=== PATIENT | male | born 1995 | race Caucasian/White ===

== ENCOUNTER 2019-09-19 22:24 | Emergency (ER) | payer BC, SELFPAY ==
[2019-09-19] MEDS ORDERED: FAMOTIDINE 20 MG/2 ML VIAL IV ONE (23:02)
[2019-09-19] MEDS ORDERED: METHYLPREDNISOLONE 125 MG INJ ONE (23:02)
[2019-09-19] MEDS ORDERED: DIPHENHYDRAMINE 50 MG/ML VIAL ONE (23:02)
--- NOTE | 2019-09-19 23:48 | ER ---
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 Site is red and ll1 swollen. Slight SOB reported. No rash/hives. States he has had a anaphylactic reaction before to wasp stings. Coronavirus screen: Client denies travel out of the [place] in the last 14 days. At this time, the client does not indicate any symptoms associated with coronavirus-19. Ebola Screen: Patient denies travel to an Ebola-affected area in the 21 days before illness onset. Initial Sepsis Screen: Does the patient meet any 2 criteria? No. Patient's initial sepsis screen is negative. Risk Assessment: Do you want to hurt yourself or someone else? Patient reports no desire to harm self or others. Onset of symptoms was September 19, 2019. 22:38 Method Of Arrival: Ambulatory ll1 22:38 Acuity: WESLEY 3 ll1 23:02 Initial Sepsis Screen: Does the patient have a suspected source of infection? No. wh Patient's initial sepsis screen is negative. Historical: - Allergies: 22:40 opiates; ll1 - PMHx: 22:40 high HR; ll1 - PSHx: 22:40 shoulder reconstruction; pyloric stenosis surgery; ll1 - Immunization history:: Flu vaccine is up to date. - Social history:: Smoking status: Patient reports the use of cigarette tobacco products, smokes one-half pack cigarettes per day, Patient uses alcohol, only on a social basis. Screenin:01 Abuse screen: Denies threats or abuse. Denies injuries from another. Nutritional wh screening: No deficits noted. Tuberculosis screening: No symptoms or risk factors identified. Fall Risk None identified. Assessment: 23:00 General: Appears in no apparent distress. Behavior is calm, cooperative, appropriate wh for age. Pain: Denies pain. Neuro: Level of Consciousness is awake, alert, obeys commands, Oriented to person, place, time, situation, Appropriate for age. Cardiovascular: Capillary refill < 3 seconds. Respiratory: Airway is patent Respiratory effort is even, unlabored, Respiratory pattern is regular, symmetrical. GI: Abdomen is flat, non-distended. : No signs and/or symptoms were reported regarding the genitourinary system. EENT: No signs and/or symptoms were reported regarding the EENT system. Derm: swelling on right hand. Musculoskeletal: Circulation, motion, and sensation intact. Swelling present in right hand. 09/19 00:13 Reassessment: Patient appears in no apparent distress at this time. No changes from previously documented assessment. Patient and/or family updated on plan of care and expected duration. Pain level reassessed. Patient is alert, oriented x 3, equal unlabored respirations, skin warm/dry/pink. Patient states feeling better. Patient states symptoms have improved. Vital Signs: 09/18 22:38 BP 135 / 85; Pulse 68; Resp 17; Temp 99.0; Pulse Ox 98% on R/A; Pain 2/10; ll1 09/19 00:13 BP 121 / 73; Pulse 73; Resp 18; Pulse Ox 98% on R/A; ED Course: 09/18 22:25 Patient arrived in ED. cl3 22:38 Aba Carlos MD is Attending Physician. tw4 22:39 Triage completed. ll1 22:40 Arm band placed on Patient placed in an exam room, on a stretcher. ll1 22:49 Dawson Crawley is Primary Nurse. wh 22:50 Inserted saline lock: 20 gauge in right antecubital area, using aseptic technique. Blood collected. 23:01 Patient has correct armband on for positive identification. Bed in low position. Call light in reach. Side rails up X 1. Pulse ox on. NIBP on. 09/19 00:14 No provider procedures requiring assistance completed. Patient did not have IV access during this emergency room visit. Administered Medications: 09/18 22:55 Drug: Pepcid 20 mg Route: IVP; Site: right antecubital; 09/19 00:14 Follow up: Response: No adverse reaction; Marked relief of symptoms 00:14 Follow up: Response: No adverse reaction; Marked relief of symptoms 09/18 22:57 Drug: Benadryl 25 mg Route: IVP; Site: right antecubital; 09/19 00:14 Follow up: Response: No adverse reaction; Marked relief of symptoms 09/18 22:59 Drug: SOLU-Medrol 125 mg Route: IVP; Site: right antecubital; 09/19 00:14 Follow up: Response: No adverse reaction; Marked relief of symptoms Outcome: 09/18 23:48 Discharge ordered by . sigrid 09/19 00:15 Discharged to home ambulatory. Condition: stable Discharge instructions given to patient, Instructed on discharge instructions, follow up and referral plans. medication usage, POC Demonstrated understanding of instructions, follow-up care, medications, POC Prescriptions given X 2. 00:15 Patient left the ED. Signatures: Dawson Crawley Aba Carlos MD MD tw4 Javier Lawrence3 Dakota Lawrence RN RN ll1 Corrections: (The following items were deleted from the chart) 09/18 22:41 22:38 Acuity: WESLEY 4 ll1 ll1
--- NOTE | 2019-09-19 23:49 | EDPHYS ---
Physician Documentation [facility] Name: Vikas Sanchez Age: 24 yrs Sex: Male : 1995 Arrival Date: 09/19/2019 Time: 22:25 Bed 18 Private MD: ED Physician Aba Carlos HPI: 09/19 01:51 This 24 yrs old Male presents to ER via Ambulatory with complaints of Wasp tw4 Sting. 01:51 The patient presents with redness of skin. Onset: The symptoms/episode began/occurred tw4 just prior to arrival, today. Associated signs and symptoms: The patient has no apparent associated signs or symptoms. Possible causes: The patient has no known obvious cause for the symptoms. At home the patient or guardian has treated the symptoms with nothing. The patient has not experienced similar symptoms in the past. Historical: - Allergies: 09/18 22:40 opiates; ll1 - PMHx: 22:40 high HR; ll1 - PSHx: 22:40 shoulder reconstruction; pyloric stenosis surgery; ll1 - Immunization history:: Flu vaccine is up to date. - Social history:: Smoking status: Patient reports the use of cigarette tobacco products, smokes one-half pack cigarettes per day, Patient uses alcohol, only on a social basis. ROS: 09/19 01:51 Constitutional: Negative for fever, chills, and weight loss, Eyes: Negative for injury, tw4 pain, redness, and discharge, Cardiovascular: Negative for chest pain, palpitations, and edema, Respiratory: Negative for shortness of breath, cough, wheezing, and pleuritic chest pain, Abdomen/GI: Negative for abdominal pain, nausea, vomiting, diarrhea, and constipation, Back: Negative for injury and pain. Skin: Positive for swelling. Exam: 01:51 Constitutional: This is a well developed, well nourished patient who is awake, alert, tw4 and in no acute distress. Head/Face: Normocephalic, atraumatic. Chest/axilla: Normal chest wall appearance and motion. Nontender with no deformity. No lesions are appreciated. Cardiovascular: Regular rate and rhythm with a normal S1 and S2. No gallops, murmurs, or rubs. Normal PMI, no JVD. No pulse deficits. Respiratory: Lungs have equal breath sounds bilaterally, clear to auscultation and percussion. No rales, rhonchi or wheezes noted. No increased work of breathing, no retractions or nasal flaring. Abdomen/GI: Soft, non-tender, with normal bowel sounds. No distension or tympany. No guarding or rebound. No evidence of tenderness throughout. Skin: Warm, dry with normal turgor. Normal color with no rashes, no lesions, and no evidence of cellulitis. 01:57 Musculoskeletal/extremity: Extremities: noted in the dorsal aspect of proximal phalanx tw4 of right thumb and Right first web space: ROM: Vital Signs: 09/18 22:38 BP 135 / 85; Pulse 68; Resp 17; Temp 99.0; Pulse Ox 98% on R/A; Pain 2/10; ll1 09/19 00:13 BP 121 / 73; Pulse 73; Resp 18; Pulse Ox 98% on R/A; wh MDM: 09/18 22:39 Patient medically screened. tw4 09/19 01:51 Differential diagnosis: anaphylaxis, urticaria. Data reviewed: vital signs, nurses tw4 notes. Counseling: I had a detailed discussion with the patient and/or guardian regarding: the historical points, exam findings, and any diagnostic results supporting the discharge/admit diagnosis. Medication response: solumderol. Response to treatment: and as a result, I will discharge patient. Special discussion: I discussed with the patient/guardian in detail that at this point there is no indication for admission to the hospital. It is understood, however, that if the symptoms persist or worsen the patient needs to return immediately for re-evaluation. 01:57 Data interpreted: Pulse oximetry: Interpretation:. tw4 Administered Medications: 09/18 22:55 Drug: Pepcid 20 mg Route: IVP; Site: right antecubital; 09/19 00:14 Follow up: Response: No adverse reaction; Marked relief of symptoms 00:14 Follow up: Response: No adverse reaction; Marked relief of symptoms 09/18 22:57 Drug: Benadryl 25 mg Route: IVP; Site: right antecubital; 09/19 00:14 Follow up: Response: No adverse reaction; Marked relief of symptoms 09/18 22:59 Drug: SOLU-Medrol 125 mg Route: IVP; Site: right antecubital; 09/19 00:14 Follow up: Response: No adverse reaction; Marked relief of symptoms wh Disposition: 09/19/19 23:48 Discharged to Home. Impression: Insect bite (nonvenomous) of right hand, Other insect allergy status. - Condition is Stable. - Discharge Instructions: Allergies, Adult, Bee, Wasp, or Hornet Sting, Adult. - Prescriptions for Medrol (Jamaal) 4 mg Oral Tablets, Dose Pack - take 1 tablet by ORAL route as directed - follow package instructions; 1 packet. EpiPen 0.3 mg Injection auto- injector - inject 1 pen by INTRAMUSCULAR route one time Inject into the outer portion of the thigh, through clothing if necessary. Indicated in the emergency treatment of allergic reactions; 1 box. - Medication Reconciliation Form, Thank You Letter, Antibiotic Education, Prescription Opioid Use form. - Follow up: Private Physician; When: Upon discharge from the Emergency Department; Reason: Recheck today's complaints, Continuance of care, Re-evaluation by your physician. - Problem is new. - Symptoms have improved. Signatures: Dawson Crawley Aba Carlos MD MD tw4 Dakota Lawrence RN RN ll1 Corrections: (The following items were deleted from the chart) 00:15 09/18 23:48 09/19/2019 23:48 Discharged to Home. Impression: Insect bite (nonvenomous) wh of right hand; Other insect allergy status. Condition is Stable. Forms are Medication Reconciliation Form, Thank You Letter, Antibiotic Education, Prescription Opioid Use. Follow up: Private Physician; When: Upon discharge from the Emergency Department; Reason: Recheck today's complaints, Continuance of care, Re-evaluation by your physician. Problem is new. Symptoms have improved. tw4
[2019-09-20 00:29] VITALS: TEMP 99; O2SAT 98
[2019-09-20 00:30] VITALS: BP 121/73
== END 2019-09-20 00:15 | disposition home or self-care (01) ==
LOC: ER 22:24
DX: S60.361A Insect bite (nonvenomous) of right thumb, initial encounter (principal); Z91.038 Other insect allergy status
CPT/HCPCS: 96374; 96375; 99284; J1200; J2930

== ENCOUNTER 2022-12-31 21:00 | Emergency (ER) | payer SELFPAY ==
[2022-12-31 22:11] LABS: Absolute Lymphocytes (CBC) 1.5 K/uL (0.7-4.9); Hematocrit 42.1 % (39.6-49.0); Lymphocytes % 8.1 % (15.3-44.8); MCV 92.5 fL (80-100); MPV 7.3 fL (7.6-11.3); Platelets 324 thou/uL (152-406); RBC Red Blood Cell Count 4.55 M/uL (4.33-5.43)
[2022-12-31 22:26] LABS: ALT/SGPT 31 U/L (16-61); AST/SGOT 16 U/L (15-37); Albumin 3.7 g/dL (3.4-5.0); Alkaline Phosphatase 58 U/L (45-117); BUN Blood Urea Nitrogen 17 mg/dL (7-18); Bicarbonate 29 mEq/L (21-32); Bilirubin Total 0.3 mg/dL (0.2-1.0); Glomerular Filtration Rate 115 ml/min (=/>90); Glucose Level 105 mg/dL (74-106); Potassium 3.7 mEq/L (3.5-5.1); Protein, Total 7.1 g/dL (6.4-8.2); Sodium Level 137 mEq/L (136-145)
[2022-12-31 22:29] LABS: Bilirubin Direct < 0.1 mg/dL (0-0.2); Bilirubin Indirect, Calculated ND mg/dL (0.2-0.8)
[2022-12-31 23:01] LABS: Blood Morphology Comment NOT SEEN (NOT SEEN); Platelet Estimate ADEQ
[2022-12-31 23:12] LABS: Protime INR 1.06
[2023-01-01 00:20] LABS: Barbiturates NEGATIVE (NEGATIVE); Benzodiazepines NEGATIVE (NEGATIVE); Cocaine NEGATIVE (NEGATIVE); METHAMPHETAM POSITIVE (NEGATIVE); Methadone NEGATIVE (NEGATIVE); Opiates NEGATIVE (NEGATIVE); Phencyclidine NEGATIVE (NEGATIVE); THC Cannibis NEGATIVE (NEGATIVE)
[2023-01-01 00:35] LABS: Specific Gravity > 1.030 (1.005-1.030); Urine Bacteria None Seen /HPF (<20); Urine Bilirubin NEGATIVE (Negative); Urine Blood Negative (Negative); Urine Clarity Clear (Clear); Urine Color Yellow (Yellow); Urine Glucose NEGATIVE (Negative); Urine Mucus 2+ /HPF (None Seen); Urine Protein TRACE (Negative); Urine RBC <5 /HPF (None Seen); Urine Urobilinogen Normal (Normal)
--- NOTE | 2023-01-01 03:21 | EDPHYS ---
Physician Documentation [facility] Name: Vikas Sanchez Age: 27 yrs Sex: Male : 1995 Arrival Date: 12/31/2022 Time: 21:00 Bed 2 Private MD: ED Physician Zenon Das HPI: 12/31 21:17 27-year-old male with a history of ADHD not currently on medications presents to the ED sp3 after taking single pill that his cousin's brother gave him after he was told it was "Adderall". Patient was hoping to get a boost while at work but instead became drowsy and somnolent and passed out to the point where his significant other gave Narcan intranasally and EMS was activated who gave Narcan 1 mg IV after which she cannot he was fully alert and oriented and awake. No prior history of similar symptoms and patient has not had any other substances on board. Review of systems negative for headache, fever, URI symptoms, shortness of breath, chest pain, neck pain, focal neurological symptoms, abdominal pain, vomiting, diarrhea, or any other signs or symptoms on ROS at this time.. Historical: - Allergies: 21:06 OPIATES; jb4 - Home Meds: 21:06 None [Active]; jb4 - PMHx: 21:06 high HR; ADHD (high HR); jb4 - PSHx: 21:06 None; jb4 - Social history:: Smoking status: Patient reports the use of cigarette tobacco products, smokes one-half pack cigarettes per day, Patient uses alcohol, occasionally. ROS: 21:18 Constitutional: Negative for fever, chills, and weight loss, Eyes: Negative for injury, sp3 pain, redness, and discharge, Neck: Negative for injury, pain, and swelling, Cardiovascular: Negative for chest pain, palpitations, and edema, Abdomen/GI: Negative for abdominal pain, nausea, vomiting, diarrhea, and constipation, Back: Negative for injury and pain, MS/Extremity: Negative for injury and deformity, Skin: Negative for injury, rash, and discoloration, Allergy/Immunology: Negative for hives, rash, and allergies, Endocrine: Negative for neck swelling, polydipsia, polyuria, polyphagia, and marked weight changes, Hematologic/Lymphatic: Negative for swollen nodes, abnormal bleeding, and unusual bruising, 21:18 All other systems are negative, Exam: 21:18 Constitutional: This is a well developed, well nourished patient who is awake, alert, sp3 and in no acute distress. Head/Face: Normocephalic, atraumatic. Eyes: Pupils equal round and reactive to light, extra-ocular motions intact. Lids and lashes normal. Conjunctiva and sclera are non-icteric and not injected. Cornea within normal limits. Periorbital areas with no swelling, redness, or edema. ENT: Nares patent. No nasal discharge, no septal abnormalities noted. External auditory canals are clear. Oropharynx with no redness, swelling, or masses, exudates, or evidence of obstruction, uvula midline. Mucous membranes moist. Neck: Trachea midline, no thyromegaly or masses palpated, and no cervical lymphadenopathy. Supple, full range of motion without nuchal rigidity, or vertebral point tenderness. No Meningismus. Chest/axilla: Normal chest wall appearance and motion. Nontender with no deformity. No lesions are appreciated. Cardiovascular: Regular rate and rhythm with a normal S1 and S2. No gallops, murmurs, or rubs. Normal PMI, no JVD. No pulse deficits. Respiratory: Lungs have equal breath sounds bilaterally, clear to auscultation and percussion. No rales, rhonchi or wheezes noted. No increased work of breathing, no retractions or nasal flaring. Abdomen/GI: Soft, non-tender, with normal bowel sounds. No distension or tympany. No guarding or rebound. No evidence of tenderness throughout. Back: No spinal tenderness. No costovertebral tenderness. Full range of motion. Skin: Warm, dry with normal turgor. Normal color with no rashes, no lesions, and no evidence of cellulitis. MS/ Extremity: Pulses equal, no cyanosis. Neurovascular intact. Full, normal range of motion. Neuro: Awake and alert, GCS 15, oriented to person, place, time, and situation. Cranial nerves II-XII grossly intact. Motor strength 5/5 in all extremities. Sensory grossly intact. Cerebellar exam normal. Normal gait. Psych: Awake, alert, with orientation to person, place and time. Behavior, mood, and affect are within normal limits. Vital Signs: 21:03 BP 94 / 72; Pulse 62; Resp 18; Temp 97.6(O); Pulse Ox 100% on R/A; Weight 72.57 kg (R); jb4 Height 6 ft. 2 in. (R); Pain 0/10; 22:24 BP 119 / 74; Pulse 67; Resp 12; Pulse Ox 100% on R/A; jb4 23:27 BP 124 / 73; Pulse 82; Resp 16; Pulse Ox 100% on R/A; jb4 01/01 00:36 BP 119 / 75; Pulse 80; Resp 14; Pulse Ox 100% on R/A; jb4 12/31 21:03 Body Mass Index 20.54 (72.57 kg, 187.96 cm) jb4 12/31 21:03 Pain Scale: Adult jb4 MDM: 12/31 21:09 Patient medically screened. sp3 21:19 Data reviewed: vital signs, nurses notes, EMS record, lab test result(s). ED course: sp3 27-year-old male who took a single pill of unknown substance that was told was Adderall now presents to the ED for probable narcotic accidental overdose. Patient is not suicidal, homicidal or psychotic. Patient is currently awake and oriented and alert and we will simply observe him for the next 2 hours. Standard work-up including laboratory values and urinalysis and urine drug screen are pending. If work-up is negative and patient stays as is without the need for further Narcan, we will safely discharge patient home.. 01/01 00:36 ED course: Opiates are negative and patient is positive for methamphetamine. Urine sp3 demonstrates no infectious etiology. Chest x-ray is also clean. Patient has no chest pain and no heart murmur and I do not believe has endocarditis or any other critical process to explain his elevated WBC count other than substance use. Educated patient on infection and all of these items and he will return if his symptoms are worse. He denies any IV drug use and states he only took the 1 pill. He is awake and alert oriented and in no distress whatsoever.. 12/31 21:10 Order name: Urine Drug Screen; Complete Time: 00:35 sp3 12/31 21:52 Order name: Basic Metabolic Panel; Complete Time: 23:18 EDMS 12/31 21:52 Order name: Liver (Hepatic) Function; Complete Time: 23:18 EDMS 12/31 21:52 Order name: Acetaminophen Level; Complete Time: 23:18 EDMS 12/31 21:52 Order name: Alcohol Serum/Plasma; Complete Time: 23:18 EDMS 12/31 21:52 Order name: Salicylates Level; Complete Time: 23:18 EDMS 12/31 21:52 Order name: CBC with Automated Diff; Complete Time: 23:18 EDMS 12/31 21:52 Order name: Protime (+INR); Complete Time: 23:18 EDMS 12/31 22:18 Order name: Manual Differential; Complete Time: 23:18 EDMS 12/31 23:19 Order name: UAM; Complete Time: 00:36 sp3 12/31 23:19 Order name: CXR XRAY sp3 12/31 21:10 Order name: IV Saline Lock; Complete Time: 21:18 sp3 12/31 21:10 Order name: Labs collected and sent; Complete Time: 21:35 sp3 12/31 21:10 Order name: Monitor; Complete Time: 21:18 sp3 Administered Medications: No medications were administered Disposition Summary: 01/01/23 00:41 Discharge Ordered Notes: Location: Home sp3 Condition: Stable sp3 Diagnosis - Poisoning by other drugs, medicaments and biological substances, accidental sp3 (unintentional) Followup: sp3 - With: Private Physician - When: Upon discharge from the Emergency Department - Reason: Continuance of care Discharge Instructions: - Discharge Summary Sheet sp3 - Accidental Drug Poisoning, Adult sp3 Forms: - Medication Reconciliation Form sp3 - Thank You Letter sp3 - Antibiotic Education sp3 - Prescription Opioid Use sp3 - Patient Portal Instructions sp3 - Leadership Thank You Letter sp3 Signatures: Dispatcher [employer] Cleveland Henriquez, RN RN jb4 Zenon Das MD MD sp3 Corrections: (The following items were deleted from the chart) 12/31 23:08 23:01 ACETAMINOPHEN+C.LAB.BRZ ordered. EDMS EDMS 23:08 23:01 BASIC METABOLIC PANEL+C.LAB.BRZ ordered. EDMS EDMS 23:08 23:01 CBC+H.LAB.BRZ ordered. EDMS EDMS 23:08 23:01 ETHANOL+C.LAB.BRZ ordered. EDMS EDMS 23:08 23:01 HEPATIC FUNCTION+C.LAB.BRZ ordered. EDMS EDMS 23:01 PROTIME (+INR)+COAG.LAB.BRZ ordered. EDMS EDMS 23:01 SALICYLATE+C.LAB.BRZ ordered. EDMS EDMS
--- NOTE | 2023-01-01 03:21 | ER ---
Nurse's Notes [facility] Name: Vikas Sanchez Age: 27 yrs Sex: Male : 1995 Arrival Date: 12/31/2022 Time: 21:00 Bed 2 Private MD: Diagnosis: Poisoning by other drugs, medicaments and biological substances, accidental (unintentional) Presentation: 12/31 21:03 Chief complaint: EMS states: Pt thought he was taking Adderall but took fentanyl by jb4 mistake. Was given nasal narcan [employer] of ems and 1mg IV narcan by EMS. Is now A\T\Ox4. Coronavirus screen: At this time, the client does not indicate any symptoms associated with coronavirus-19. Ebola Screen: No symptoms or risks identified at this time. Initial Sepsis Screen: Does the patient meet any 2 criteria? No. Patient's initial sepsis screen is negative. Does the patient have a suspected source of infection? No. Patient's initial sepsis screen is negative. Risk Assessment: Do you want to hurt yourself or someone else? Patient reports no desire to harm self or others. Onset of symptoms was December 31, 2022. Transition of care: patient was not received from another setting of care. 21:03 Method Of Arrival: EMS: [facility] jb4 21:03 Acuity: WESLEY 3 jb4 Triage Assessment: 21:06 General: Appears in no apparent distress. comfortable, Behavior is calm, cooperative, jb4 appropriate for age. Pain: Denies pain. EENT: No signs and/or symptoms were reported regarding the EENT system. Neuro: Level of Consciousness is awake, alert, obeys commands, Oriented to person, place, time, situation. Cardiovascular: Patient's skin is warm and dry. Respiratory: Airway is patent Respiratory effort is even, unlabored, Respiratory pattern is regular, symmetrical. GI: No signs and/or symptoms were reported involving the gastrointestinal system. : No signs and/or symptoms were reported regarding the genitourinary system. Derm: Skin is intact, Skin is pink, warm \T\ dry. Musculoskeletal: Circulation, motion, and sensation intact. Range of motion: intact in all extremities. Historical: - Allergies: 21:06 OPIATES; jb4 - Home Meds: 21:06 None [Active]; jb4 - PMHx: 21:06 high HR; ADHD (high HR); jb4 - PSHx: 21:06 None; jb4 - Social history:: Smoking status: Patient reports the use of cigarette tobacco products, smokes one-half pack cigarettes per day, Patient uses alcohol, occasionally. Screenin:08 [facility] ED Fall Risk Assessment (Adult) History of falling in the last 3 months, jb4 including since admission No falls in past 3 months (0 pts) Confusion or Disorientation No (0 pts). Abuse screen: Denies threats or abuse. Nutritional screening: No deficits noted. Tuberculosis screening: No symptoms or risk factors identified. Assessment: 21:08 General: see triage note. jb4 22:24 Reassessment: Patient appears in no apparent distress at this time. Patient and/or jb4 family updated on plan of care and expected duration. Pain level reassessed. Patient is alert, oriented x 3, equal unlabored respirations, skin warm/dry/pink. 23:27 Reassessment: Patient appears in no apparent distress at this time. Patient and/or jb4 family updated on plan of care and expected duration. Pain level reassessed. Patient is alert, oriented x 3, equal unlabored respirations, skin warm/dry/pink. 01/01 00:36 Reassessment: Patient appears in no apparent distress at this time. Patient and/or jb4 family updated on plan of care and expected duration. Pain level reassessed. Patient is alert, oriented x 3, equal unlabored respirations, skin warm/dry/pink. Vital Signs: 12/31 21:03 BP 94 / 72; Pulse 62; Resp 18; Temp 97.6(O); Pulse Ox 100% on R/A; Weight 72.57 kg (R); jb4 Height 6 ft. 2 in. (R); Pain 0/10; 22:24 BP 119 / 74; Pulse 67; Resp 12; Pulse Ox 100% on R/A; jb4 23:27 BP 124 / 73; Pulse 82; Resp 16; Pulse Ox 100% on R/A; jb4 01/01 00:36 BP 119 / 75; Pulse 80; Resp 14; Pulse Ox 100% on R/A; jb4 12/31 21:03 Body Mass Index 20.54 (72.57 kg, 187.96 cm) 4 12/31 21:03 Pain Scale: Adult jb4 ED Course: 12/31 21:03 Patient arrived in ED. jb4 21:03 Zenon Das MD is Attending Physician. sp3 21:06 Triage completed. jb4 21:06 Arm band placed on right wrist. jb4 21:08 Patient has correct armband on for positive identification. Bed in low position. Call jb4 light in reach. Side rails up X 1. Client placed on continuous cardiac and pulse oximetry monitoring. NIBP monitoring applied. court monitor on. 22:22 Cleveland Suggs, RN is Primary Nurse. jb4 01/01 00:13 CXR XRAY In Process Unspecified. EDMS 00:57 No provider procedures requiring assistance completed. IV discontinued, intact, jb4 bleeding controlled, No redness/swelling at site. Pressure dressing applied. Administered Medications: No medications were administered Medication: 12/31 21:08 VIS not applicable for this client. jb4 Outcome: 01/01 00:41 Discharge ordered by MD. sp3 00:57 Discharged to home ambulatory, jb4 00:57 Condition: stable 00:57 Discharge instructions given to patient, Instructed on discharge instructions, follow up and referral plans. Demonstrated understanding of instructions, follow-up care, 00:57 Patient left the ED. jb4 Signatures: Dispatcher [employer] EDSC Cleveland Suggs RN RN jb4 Zenon Das MD MD sp3
[2023-01-01 03:34] VITALS: TEMP 97.6; O2SAT 100
[2023-01-01 03:37] VITALS: BP 119/75
--- NOTE | 2023-01-02 11:27 | RAD REPORT ---
EXAM DESCRIPTION: RAD - Chest Single View - 01/01/2023 12:12 am CLINICAL HISTORY: The patient is 27 years old and is Male; leukocytosis TECHNIQUE: Frontal view of the chest. COMPARISON: No relevant prior studies available. FINDINGS: Lungs: Unremarkable. No consolidation. Pleural space: Unremarkable. No pneumothorax. Heart: Unremarkable. Mediastinum: Unremarkable. Bones/joints: No acute findings. IMPRESSION: No acute findings in the chest. 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 The interpreting r adiologist is fully responsible for the content of the report.
== END 2023-01-01 00:57 | disposition home or self-care (01) ==
LOC: ER 21:00
DX: R40.0 Somnolence (principal); T50.991A Poisoning by other drugs, medicaments and biological substances, accidental (unintentional), initial encounter
CPT/HCPCS: 36415; 71045; 80048; 80076; 80143; 80179; 80307; 81001; 82077; 85025; 85610; 99284

== ENCOUNTER 2023-08-25 19:06 | Emergency (ER) | payer SELFPAY ==
[2023-08-25] MEDS ORDERED: NA CHLORIDE 0.9% 1,000 ML ONE (19:35)
[2023-08-25 19:39] LABS: Absolute Basophils 0.1 K/uL (0-0.5); Absolute Eosinophils 0.2 K/uL (0-0.5); Absolute Monocytes 0.7 K/uL (0.1-1.3); Absolute Neutrophil 7.6 K/uL (1.8-8.0); Basophils % 0.5 % (0-1.3); Eosinophils % 1.5 % (0-4.4); Hematocrit 43.6 % (39.6-49.0); Hemoglobin 14.2 g/dL (13.6-17.9); Lymphocytes % 18.9 % (15.3-44.8); MCHC 32.6 g/dL (32.0-36.0); MCV 92.2 fL (80-100); MPV 7.9 fL (7.6-11.3); Monocytes % 6.3 % (3.3-12.3); Neutrophils % 72.8 % (41.7-73.7); Platelets 332 thou/uL (152-406); RBC Red Blood Cell Count 4.72 M/uL (4.33-5.43); Red Cell Distribution Width 14.4 % (12.1-15.2)
[2023-08-25 19:57] LABS: Anion Gap 6.7 mEq/L (5.0-15.0); Magnesium 2.6 mg/dL (1.6-2.4); Potassium 3.7 mEq/L (3.5-5.1); Troponin High Sensitivity 4.2 pg/mL (<58.9)
--- NOTE | 2023-08-25 20:02 | EDPHYS ---
Physician Documentation [facility] Name: Vikas Sanchez Age: 27 yrs Sex: Male : 1995 Arrival Date: 08/25/2023 Time: 19:06 Bed 20 Private MD: ED Physician Chase Hamilton HPI: 08/24 23:52 This 27 yrs old Male presents to ER via EMS with complaints of Heat Exhaustion. rt 23:52 Patient presents to the ED with reported heat exhaustion. Patient was working outside, rt states that he was not drinking enough fluids. Patient states he became weak, had full body cramps. Denies loss of conscious, other acute complaints, symptoms are moderate in severity, no other aggravating elevating factors.. Historical: - Allergies: 19:21 OPIATES; tm6 19:21 wasps; tm6 - PMHx: 19:21 adhd (high HR); high HR; tm6 - PSHx: 19:21 None; tm6 - Immunization history:: Client reports having NOT received the Covid vaccine. - Infectious Disease History:: Denies. - Social history:: Smoking status: Patient reports the use of cigarette tobacco products, smokes one-half pack cigarettes per day. - Family history:: not pertinent. ROS: 23:52 Cardiovascular: Negative for chest pain, palpitations, and edema, Respiratory: Negative rt for shortness of breath, cough, wheezing, and pleuritic chest pain, Abdomen/GI: Negative for abdominal pain, nausea, vomiting, diarrhea, and constipation, MS/Extremity: Negative for injury and deformity, Skin: Negative for injury, rash, and discoloration, Neuro: Negative for headache, weakness, numbness, tingling, and seizure, 23:52 Constitutional: Positive for body aches, Negative for fever, Exam: 23:52 Constitutional: This is a well developed, well nourished patient who is awake, alert, rt and in no acute distress. Head/Face: Normocephalic, atraumatic. Chest/axilla: Normal chest wall appearance and motion. Nontender with no deformity. No lesions are appreciated. Cardiovascular: Regular rate and rhythm with a normal S1 and S2. No gallops, murmurs, or rubs. Normal PMI, no JVD. No pulse deficits. Respiratory: Lungs have equal breath sounds bilaterally, clear to auscultation and percussion. No rales, rhonchi or wheezes noted. No increased work of breathing, no retractions or nasal flaring. Abdomen/GI: Soft, non-tender, with normal bowel sounds. No distension or tympany. No guarding or rebound. No evidence of tenderness throughout. Skin: Warm, dry with normal turgor. Normal color with no rashes, no lesions, and no evidence of cellulitis. MS/ Extremity: Pulses equal, no cyanosis. Neurovascular intact. Full, normal range of motion. Neuro: Awake and alert, GCS 15, oriented to person, place, time, and situation. Cranial nerves II-XII grossly intact. Motor strength 5/5 in all extremities. Sensory grossly intact. Cerebellar exam normal. Normal gait. 23:52 ENT: Dry mucous membranes. 23:52 ECG was reviewed by the Attending Physician. Vital Signs: 19:17 BP 128 / 85; Pulse 113; Resp 12; Temp 98.9(O); Pulse Ox 99% on R/A; MAP 93 mmHg; Weight tm6 81.65 kg; Height 6 ft. 2 in. ; Pain 0/10; 20:18 BP 136 / 84; Pulse 101; Resp 18; Temp 98.9(O); Pulse Ox 99% on R/A; Pain 0/10; tm6 19:17 Body Mass Index 23.11 (81.65 kg, 187.96 cm) tm6 19:17 Pain Scale: Adult tm6 20:18 Pain Scale: Adult tm6 MDM: 19:10 Patient medically screened. rt 23:54 Differential Diagnosis Electrolyte disturbance, dehydration, rhabdomyolysis. Data rt reviewed: vital signs, nurses notes, lab test result(s), EKG. I considered the following discharge prescriptions or medication management in the emergency department Medications were administered in the Emergency Department. See MAR. Counseling: I had a detailed discussion with the patient and/or guardian regarding the historical points, exam findings, and any diagnostic results supporting the discharge/admit diagnosis, lab results, the need for outpatient follow up, to return to the emergency department if symptoms worsen or persist or if there are any questions or concerns that arise at home. Response to treatment: the patient's symptoms have markedly improved after treatment. 08/24 19:15 Order name: Basic Metabolic Panel; Complete Time: 19:58 rt 08/24 19:15 Order name: CBC with Diff; Complete Time: 19:58 rt 08/24 19:15 Order name: Magnesium; Complete Time: :58 rt 08/24 19:15 Order name: Troponin HS; Complete Time: :58 rt 08/24 19:15 Order name: CPK; Complete Time: 19:58 rt 08/24 19:15 Order name: Cardiac monitoring; Complete Time: 19:24 rt 08/24 19:15 Order name: EKG - Nurse/Tech; Complete Time: 19:37 rt 08/24 19:15 Order name: IV Saline Lock; Complete Time: 19:24 rt 08/24 19:15 Order name: Labs collected and sent; Complete Time: 19:37 rt 08/24 19:15 Order name: O2 Per Protocol; Complete Time: 19:24 rt 08/24 19:15 Order name: O2 Sat Monitoring; Complete Time: 19:24 rt EC:52 Rate is 106 beats/min. Rhythm is regular, Sinus tachycardia with No ectopy. QRS [place] is rt Normal. MT interval is normal. QRS interval is normal. QT interval is normal. No Q waves. T waves are Normal. No ST changes noted. Interpreted by me. Administered Medications: 19:38 Drug: NS 0.9% IV 2000 ml IV at 1 bolus Per protocol; 2000 mL bolus {Note: per 1L tm6 bolus, as patient received 1LNS from EMS.} Route: IV; Rate: 1 bolus; Site: left antecubital; 20:19 Follow up: IV Status: Completed infusion; IV Intake: 1000ml tm6 Disposition Summary: 08/25/23 20:02 Discharge Ordered Notes: Location: Home rt Problem: new rt Symptoms: have improved rt Condition: Stable rt Diagnosis - Heat exhaustion, unspecified rt Followup: rt - With: Private Physician - When: 2 - 3 days - Reason: Discharge Instructions: - Discharge Summary Sheet rt - Heat Exhaustion rt Forms: - Medication Reconciliation Form rt - Antibiotic Education rt - Prescription Opioid Use rt - Patient Portal Instructions rt - Leadership Thank You Letter rt Signatures: Dispatcher [employer] Chase Pat MD MD rt Verona Love RN RN tm6
--- NOTE | 2023-08-25 20:02 | ER ---
Nurse's Notes [facility] Name: Vikas Sanchez Age: 27 yrs Sex: Male : 1995 Arrival Date: 08/25/2023 Time: 19:06 Bed 20 Private MD: Diagnosis: Heat exhaustion, unspecified Presentation: 08/24 19:17 Chief complaint: EMS states: patient was outside working and stopped sweating. Family tm6 said he became slightly altered. Has had a heat stroke in the past. Family covered patient in cold water. Upon EMS arrival, patient was A\T\Ox4, with slower speech. Speech is now back to normal. HR has been in 120s, patient states this is normal for him. Coronavirus screen: Vaccine status: Patient reports being unvaccinated. Ebola Screen: Patient negative for fever greater than or equal to 101.5 degrees Fahrenheit, and additional compatible Ebola Virus Disease symptoms Patient denies exposure to infectious person. Patient denies travel to an Ebola-affected area in the 21 days before illness onset. No symptoms or risks identified at this time. Initial Sepsis Screen: Does the patient meet any 2 criteria? HR > 90 bpm. Does the patient have a suspected source of infection? No. Patient's initial sepsis screen is negative. Risk Assessment: Do you want to hurt yourself or someone else? Patient reports no desire to harm self or others. Onset of symptoms was August 25, 2023. 19:17 Method Of Arrival: EMS: [facility] tm6 19:17 Acuity: WESLEY 3 tm6 19:21 Care prior to arrival: Medication(s) given: Normal saline infusion, 1000 mL. tm6 Triage Assessment: 19:21 General: Appears in no apparent distress. Behavior is calm, cooperative. Pain: Denies tm6 pain. EENT: No signs and/or symptoms were reported regarding the EENT system. Neuro: Level of Consciousness is awake, alert, obeys commands, Oriented to person, place, time, situation. Cardiovascular: Patient's skin is warm and dry. Rhythm is sinus tachycardia. Respiratory: Airway is patent Respiratory effort is even, unlabored, Respiratory pattern is regular, symmetrical. GI: No signs and/or symptoms were reported involving the gastrointestinal system. Abdomen is flat, non-distended. : No signs and/or symptoms were reported regarding the genitourinary system. Derm: No signs and/or symptoms reported regarding the dermatologic system. Musculoskeletal: No signs and/or symptoms reported regarding the musculoskeletal system. Historical: - Allergies: 19:21 OPIATES; tm6 19:21 wasps; tm6 - PMHx: 19:21 adhd (high HR); high HR; tm6 - PSHx: 19:21 None; tm6 - Immunization history:: Client reports having NOT received the Covid vaccine. - Infectious Disease History:: Denies. - Social history:: Smoking status: Patient reports the use of cigarette tobacco products, smokes one-half pack cigarettes per day. - Family history:: not pertinent. Screenin:23 [facility] ED Fall Risk Assessment (Adult) History of falling in the last 3 months, tm6 including since admission No falls in past 3 months (0 pts) Confusion or Disorientation No (0 pts) Intoxicated or Sedated No (0 pts) Impaired Gait No (0 pts) Mobility Assist Device Used No (0 pt) Altered Elimination No (0 pt) Score/Fall Risk Level 0 - 2 = Low Risk Oriented to surroundings, Maintained a safe environment, Educated pt \T\ family on fall prevention, incl call for assistance when getting out of bed. Abuse screen: Denies threats or abuse. Denies injuries from another. Nutritional screening: No deficits noted. Tuberculosis screening: No symptoms or risk factors identified. Assessment: 19:23 Reassessment: see triage assessment. tm6 20:18 Reassessment: Patient appears in no apparent distress at this time. Patient and/or tm6 family updated on plan of care and expected duration. Pain level reassessed. Patient is alert, oriented x 3, equal unlabored respirations, skin warm/dry/pink. Vital Signs: 19:17 BP 128 / 85; Pulse 113; Resp 12; Temp 98.9(O); Pulse Ox 99% on R/A; MAP 93 mmHg; Weight tm6 81.65 kg; Height 6 ft. 2 in. ; Pain 0/10; 20:18 BP 136 / 84; Pulse 101; Resp 18; Temp 98.9(O); Pulse Ox 99% on R/A; Pain 0/10; tm6 19:17 Body Mass Index 23.11 (81.65 kg, 187.96 cm) tm6 19:17 Pain Scale: Adult tm6 20:18 Pain Scale: Adult tm6 ED Course: 19:08 Patient arrived in ED. kb3 19:10 Chase Hamilton MD is Attending Physician. rt 19:17 Verona Love, RN is Primary Nurse. tm6 19:21 Triage completed. tm6 19:21 Arm band placed on right wrist. tm6 19:23 Patient has correct armband on for positive identification. Placed in gown. Bed in low tm6 position. Call light in reach. Side rails up X 1. Provided Education on: use of call hunter. Client placed on continuous cardiac and pulse oximetry monitoring. NIBP monitoring applied. front desk monitor on. Pulse ox on. NIBP on. Door closed. Noise minimized. Warm blanket given. 19:23 Maintain EMS IV. Dressing intact. Good blood return noted. Site clean \T\ dry. Gauge \T\ tm 6 site: 18g LAC. 19:37 Basic Metabolic Panel Sent. tm6 19:37 CBC with Diff Sent. tm6 19:37 Magnesium Sent. tm6 19:37 Troponin HS Sent. tm6 19:38 CPK Sent. tm6 19:42 EKG done, by ED staff, reviewed by Chase Hamilton MD. oe 20:18 No provider procedures requiring assistance completed. IV discontinued, intact, tm6 bleeding controlled, No redness/swelling at site. Pressure dressing applied. Administered Medications: 19:38 Drug: NS 0.9% IV 2000 ml IV at 1 bolus Per protocol; 2000 mL bolus {Note: per MD 1L tm6 bolus, as patient received 1LNS from EMS.} Route: IV; Rate: 1 bolus; Site: left antecubital; 20:19 Follow up: IV Status: Completed infusion; IV Intake: 1000ml tm6 Medication: 19:23 VIS not applicable for this client. tm6 Intake: 20:19 IV: 1000ml; Total: 1000ml. tm6 Outcome: 20:02 Discharge ordered by . rt 20:19 Discharged to home ambulatory, tm6 20:19 Condition: stable 20:19 Discharge instructions given to patient, Instructed on discharge instructions, follow up and referral plans. Demonstrated understanding of instructions, follow-up care, 20:19 Patient left the ED. tm6 Signatures: Conrado Medina Kelly RN RN kb3 Chase Hamilton MD MD rt Kate, Tawney, RN RN tm6
[2023-08-25 20:29] VITALS: BP 136/84; TEMP 98.9; O2SAT 99
--- NOTE | 2023-08-28 12:17 | EKG ---
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
== END 2023-08-25 20:19 | disposition home or self-care (01) ==
LOC: ER 19:06
DX: T67.5XXA Heat exhaustion, unspecified, initial encounter (principal)
CPT/HCPCS: 36415; 80048; 82550; 83735; 84484; 85025; 93005; 96360; 99285; J7030